=== PATIENT | female | born 1975 | race Caucasian/White ===

== ENCOUNTER 2025-01-28 06:19 | Day surgery (SDC) | payer BC, SELFPAY ==
[2025-01-18 13:55] VITALS: BMI 24.8
[2025-01-18 14:58] LABS: Hematocrit 39.2 % (37.0-47.0); Hemoglobin 12.9 g/dL (12.0-16.0); Mean Corp Hgb Conc. 32.9 g/dL (33.0-37.0); Mean Corpuscular Volume 93.6 fL (81.0-99.0); Nucleated Red Blood Cells % 0 %; Platelet Count 266 10^3/uL (130-400); Red Cell Dist. Width 12.1 % (11.5-14.5)
[2025-01-18 15:34] LABS: Beta HCG Quantitative < 2.39 mIU/ml
[2025-01-28] VITALS (8 sets, daily range): BP systolic 96–108; BP diastolic 61–69; BMI 24.8
[2025-01-28] MEDS: NORMOSOL-R/PLASMALYTE-A 1000 IV (11:40)
--- NOTE | 2025-01-28 21:30 | OR.RPT ---
Operative Report
Operative Report
Procedure date: 01/28/2025
Preop diagnosis:
- Abnormal uterine bleeding
- Endometrial polyp
Postop diagnosis
- Abnormal uterine bleeding
Procedure
- Hysteroscopy, dilation and curettage
Surgeon: Ashlee Sanchez DO
Anesthesia: General
EBL: 5cc
Complications: none
Findings
- Normal appearing external genitalia
- Cervix without lesions or masses
- Bimanual exam with normal sized anteverted uterus, no adnexal masses
- Hysteroscopic evaluation with bilateral tubal ostia visualized. Normal appearing endometrial cavity. No endometrial polyp or submucosal fibroids noted.
Pathology: endometrial curettings
Indication:
Patient is a 49yo who presents for hysteroscopy D&C. She has heavy menses and pelvic ultrasound showed a possible polyp. Given finding of possible endometrial polyp, hysteroscopy D&C with MyoSure recommended. Risks, benefits and alternatives to
the procedure were discussed and all questions answered. Consents were signed.
Procedure:
Patient was taken to the operating room and placed under general anesthesia. She was placed in the dorsal lithotomy position with Jose A type stirrups. She was prepped and draped in the normal sterile fashion. Bimanual exam revealed the
aforementioned findings. A straight cath was performed for 100cc of clear urine. A Bedolla retractor was placed in the anterior portion of the vagina and a Bedolla retractor in the posterior aspect of the vagina revealing good visualization the cervix.
The anterior lip of the cervix was grasped with a single tooth tenaculum. The uterus was sounded to 7cm. The cervix was sequentially dilated to accommodate the MyoSure hysteroscope. The hysteroscope was advanced under direct visualization.
Hysteroscopic evaluation revealed the aforementioned findings. No endometrial polyp was visualized. The hysteroscope was removed. A size 0 curette was introduced into the cervix. The uterus was curetted in a clockwise fashion until uterine cry was
felt in all quadrants. Endometrial curettings were sent to pathology for evaluation. The tenaculum was removed from the cervix and oozing was noted despite pressure. Silver nitrate placed on tenaculum sites to achieve hemostasis. All instruments
were removed from the vagina.
The patient tolerated the procedure well. All sponge and instrument counts were correct x2. She was taken to PACU in stable condition.
== END 2025-01-28 17:45 | disposition home or self-care (01) ==
LOC: SDS 06:19
PROVIDERS: ATTENDING PHYSICIAN Student in an Organized Health Care Education/Training Program; FAMILY PHYSICIAN Family Medicine
DX: N92.0 Excessive and frequent menstruation with regular cycle (principal); N85.00 Endometrial hyperplasia, unspecified
CPT/HCPCS: 58558; 36415; 84702; 85025; 86850; 86900; 86901; 88305